=== PATIENT | female | born 1955 | race Caucasian/White ===

== ENCOUNTER 2016-07-20 14:12 | Emergency (ER) | payer MEDICAID, OTHER ==
[~2016-07-20] VITALS: Ht 154.9 cm; Wt 69.0 kg
[~2016-07-20 14:12] MED LIST: LISI-604; SIMV40TA5
[2016-07-20] MEDS ORDERED: DIPHENHYDRAMINE 50MG/ML VIAL IV ONE (15:00)
[2016-07-20] MEDS ORDERED: SODIUM CHLORIDE 0.9% 1,000 ML IV ONE (15:00)
[2016-07-20] MEDS ORDERED: METOCLOPRAMIDE HCL 10MG/2ML VIAL IV ONE (15:00)
[2016-07-20] MEDS ORDERED: MORPHINE SULFATE 2 MG/ML CPJ (NOT FOR IM USE) IV ONE (15:00)
[2016-07-20 15:54] LABS: BASOPHILS % 0.9 % (0.0-2.0); HEMATOCRIT. 38.9 % (36.0-48.0); LYMPHOCYTES % 30.1 % (20.0-50.0); MEAN CORPUSCULAR HEMOGLOBIN 29.6 pg (28.0-32.0); MEAN CORPUSCULAR HGB CONC 33.4 g/dL (31.0-37.0); MEAN CORPUSCULAR VOLUME 88.5 fL (81.0-99.0); MONOCYTES % 8.3 % (2.0-8.0); NEUTROPHILS % 59.7 % (40.0-76.0); PLATELET 214 x1000/uL (130-400); RED CELL DISTRIBUTION WIDTH 13.8 % (11.6-14.6); WHITE BLOOD COUNT 6.8 x1000/uL (4.5-11.0)
[2016-07-20 16:00] LABS: CHLORIDE 106 mEq/L (98-107); INDEX HEMOLYSI 1 (1-3); INDEX ICTERIC 1 (1-4); INDEX LIPEMIC 1 (1-3)
[2016-07-20 16:04] LABS: ALBUMIN 3.9 g/dL (3.4-5.0); ANION GAP 15; CALCIUM 8.8 mg/dL (8.5-10.1); CARBON DIOXIDE 25 mEq/L (21-32); UREA NITROGEN BLOOD 13 mg/dL (7-21)
[2016-07-20 16:06] LABS: ALANINE AMINOTRANSFERASE 25 IU/L (13-61); eGFR > 60 mL/min (>60)
[2016-07-20] MEDS ORDERED: KETOROLAC 30MG/ML VIAL IV NR (17:15)
[2016-07-20] MEDS ORDERED: MORPHINE SULFATE 2 MG/ML CPJ (NOT FOR IM USE) IV NR (17:15)
[2016-07-20 18:27] VITALS: BP 125/71
== END 2016-07-20 18:29 | disposition home or self-care (01) ==
LOC: ER 14:13
DX: G43.909 Migraine, unspecified, not intractable, without status migrainosus (principal); H53.149 Visual discomfort, unspecified; E78.00 Pure hypercholesterolemia, unspecified; I10 Essential (primary) hypertension; R20.2 Paresthesia of skin
CPT/HCPCS: 36415; 70450; 80053; 85025; 96361; 96374; 96375; 96376; 99285; J1200; J1885; J2270; J2765; J7030; Z7610

== ENCOUNTER 2017-06-29 12:53 | Inpatient (IN) | payer SELFPAY ==
[~2017-06-29] VITALS: Ht 154.9 cm; Wt 69.5 kg
[~2017-06-29 12:53] MED LIST changes: -LISI-604; +LISI-604 PO; -SIMV40TA5; +SIMV40TA5 PO
[2017-06-29] MEDS ORDERED: ASPIRIN 81MG TABLET PO STA (14:33)
[2017-06-29] MEDS ORDERED: NITROGLYCERIN 0.4MG TABLET SL SL PRN ×2 (14:45→16:15)
[2017-06-29] MEDS ORDERED: CLONIDINE 0.1MG TABLET PO ONE (14:45)
[2017-06-29 15:12] LABS: EOSINOPHILS % 0.7 % (0.0-5.0); HEMATOCRIT. 40.4 % (36.0-48.0); HEMOGLOBIN. 13.8 g/dL (12.0-16.0); LYMPHOCYTES % 22.1 % (20.0-50.0); MEAN CORPUSCULAR VOLUME 88.1 fL (81.0-99.0); MEAN PLATELET VOLUME 9.1 fl (7.4-10.4); MONOCYTES % 6.5 % (2.0-8.0); NEUTROPHILS % 69.7 % (40.0-76.0); PLATELET 225 x1000/uL (130-400); RED BLOOD CELL COUNT 4.58 mill/uL (4.2-5.4); RED CELL DISTRIBUTION WIDTH 13.7 % (11.6-14.6)
[2017-06-29 15:17] LABS: CHLORIDE 106 mEq/L (98-107)
[2017-06-29 15:21] LABS: D-DIMER 0.82 mg/L FEU (<0.50); INR 1.1; PARTIAL THROMBOPLASTIN TIME 26.4 sec (23.4-31.0); PROTHROMBIN TIME 11.5 sec (9.4-11.6)
[2017-06-29 15:27] LABS: TROPONIN I < 0.02 ng/mL (0.00-0.04)
[2017-06-29] MEDS ORDERED: GUAIFENESIN 200MG/10ML SUGAR FREE UDC PO PRN (16:15)
[2017-06-29] MEDS ORDERED: DIPHENHYDRAMINE 50MG/ML VIAL IV PRN (16:15)
[2017-06-29] MEDS ORDERED: ACETAMINOPHEN 325MG TABLET PO PRN (16:15)
[2017-06-29] MEDS ORDERED: ONDANSETRON HCL 4MG/2ML VIAL IV PRN (16:15)
[2017-06-29] MEDS ORDERED: IPRATROPIUM/ALBUTEROL 0.5-3(2.5)MG/3ML NEB INH PRN (16:15)
[2017-06-29] MEDS ORDERED: LORAZEPAM 0.5MG TABLET PO PRN (16:15)
[2017-06-29] MEDS ORDERED: MAGNESIUM/ALUMINUM HYDROXIDE/SIMETHICONE 30ML UDC PO PRN (16:15)
[2017-06-29] MEDS ORDERED: CLONIDINE 0.1MG TABLET PO PRN (16:15)
[2017-06-29] MEDS ORDERED: DOCUSATE SODIUM 100MG CAPSULE PO PRN (16:15)
[2017-06-29] MEDS ORDERED: KETOROLAC 15MG/ML VIAL IV PRN (16:30)
[2017-06-29] MEDS ORDERED: IOHEXOL-350 100 ML BOTTLE ONE (17:42)
[2017-06-29] MEDS ORDERED: NA PHOS,M-B/NA PHOS,DI-BA ENEMA 118ML PR PRN (20:00)
[2017-06-29] MEDS ORDERED: ZOLPIDEM TARTRATE 5MG TABLET PO PRN (20:00)
[2017-06-29 21:05] VITALS: BP 138/74
[2017-06-29] MEDS: LISINOPRIL 20MG TABLET PO SCH (21:24)
[2017-06-29] MEDS: METOPROLOL TARTRATE 25MG TABLET PO SCH (21:24)
[2017-06-29] MEDS: FAMOTIDINE 20MG/2ML VIAL IV SCH (21:25)
[2017-06-29] MEDS ORDERED: PNEUMOCOCCAL 23-VAL P-SAC VAC 0.5 ML IM ONE (23:45)
[2017-06-29] MEDS ORDERED: INFLUENZA VIRUS VACCINE 0.5ML SYR IM ONE (23:45)
[2017-06-29 23:50] LABS: CREATINE KINASE 230 IU/L (26-192); CREATINE KINASE MB FRACTION 1.4 ng/mL (0.5-3.6); TROPONIN I < 0.02 ng/mL (0.00-0.04)
[2017-06-30] VITALS: BP 119/59
[2017-06-30 01:37] LABS: *AMPHETAMINES SCREEN URINE NEGATIVE (NEGATIVE); *BARBITURATES SCREEN URINE NEGATIVE (NEGATIVE); *BENZODIAZEPINES SCREEN URINE NEGATIVE (NEGATIVE); *COCAINE SCREEN URINE NEGATIVE (NEGATIVE); CANNABINOID URINE SCREEN NEGATIVE (NEGATIVE); METHADONE URINE SCREEN NEGATIVE (NEGATIVE); OPIATES URINE SCREEN NEGATIVE (NEGATIVE); PHENCYCLIDINE URINE SCREEN NEGATIVE (NEGATIVE)
[2017-06-30 04:00] VITALS: BP 113/52
[2017-06-30 07:21] LABS: CREATINE KINASE 235 IU/L (26-192); CREATINE KINASE MB FRACTION 1.4 ng/mL (0.5-3.6); TROPONIN I < 0.02 ng/mL (0.00-0.04)
[2017-06-30] MEDS: FAMOTIDINE 20MG/2ML VIAL IV SCH (08:34)
[2017-06-30] MEDS: LISINOPRIL 20MG TABLET PO SCH (08:35)
[2017-06-30] MEDS: METOPROLOL TARTRATE 25MG TABLET PO SCH (08:35)
[2017-06-30] MEDS ORDERED: ASPIRIN 325MG EC TABLET PO SCH (09:00)
[2017-06-30] MEDS ORDERED: AMLODIPINE 10MG TABLET PO SCH (09:00)
[2017-06-30] MEDS ORDERED: ENOXAPARIN 40MG/0.4ML SYR SUBCUT SCH (09:00)
[2017-06-30 10:21] VITALS: BP 118/70
== END 2017-06-30 12:40 | disposition home or self-care (01) | DRG 203 ==
LOC: ER 14:28 → 8WST 14:35 → EDBEDREQ 16:03 → ENRESERV 19:21
PROVIDERS: ADMIT Internal Medicine; ATTEND Internal Medicine
DX: R07.89 Other chest pain (principal); I10 Essential (primary) hypertension; E78.00 Pure hypercholesterolemia, unspecified; M19.90 Unspecified osteoarthritis, unspecified site; Z79.899 Other long term (current) drug therapy
CPT/HCPCS: 36415; 71045; 71275; 80053; 80061; 80305; 82550; 82553; 83036; 83880; 84484; 85025; 85379; 85610; 85730; 90686; 90732; 93005; 93970; 99285; J1650; J3490; Q9967

== ENCOUNTER 2018-06-27 21:20 | Inpatient (IN) | payer SELFPAY ==
[~2018-06-27] VITALS: Ht 157.5 cm; Wt 65.8 kg
[2018-06-27] MEDS ORDERED: ASPIRIN 81MG TABLET PO ONE (22:30)
[2018-06-27 22:53] LABS: EOSINOPHILS % 2.7 % (0.0-5.0); HEMATOCRIT. 43.3 % (36.0-48.0); HEMOGLOBIN. 14.3 g/dL (12.0-16.0); MEAN CORPUSCULAR HEMOGLOBIN 29.7 pg (28.0-32.0); MEAN CORPUSCULAR VOLUME 89.9 fL (81.0-99.0); MONOCYTES % 10.4 % (2.0-8.0); NEUTROPHILS % 63.9 % (40.0-76.0); PLATELET 206 x1000/uL (130-400); RED BLOOD CELL COUNT 4.82 mill/uL (4.2-5.4); RED CELL DISTRIBUTION WIDTH 13.7 % (11.6-14.6)
[2018-06-27 22:56] LABS: CHLORIDE 106 mEq/L (98-107)
[2018-06-27 22:58] LABS: INR 1.1; PROTHROMBIN TIME 10.9 sec (9.1-11.1)
[2018-06-27] MEDS ORDERED: NITROGLYCERIN 0.4MG TABLET SL SL ONE (23:45)
[2018-06-28] MEDS ORDERED: NITROGLYCERIN 0.4MG TABLET SL SL ONE (00:15)
[2018-06-28] MEDS ORDERED: SODIUM CHLORIDE 0.9% 1,000 ML IV ONE (00:30)
[2018-06-28] MEDS ORDERED: IOHEXOL-350 100 ML BOTTLE ONE (03:55)
[2018-06-28 12:00] VITALS: BP 165/106
[2018-06-28 13:03] VITALS: BP 165/106
[2018-06-28] MEDS ORDERED: NITROGLYCERIN 0.4MG TABLET SL SL PRN (13:45)
[2018-06-28] MEDS ORDERED: HYDROCODONE/ACETAMINOPHEN 5/325MG TABLET PO PRN (13:45)
[2018-06-28 16:00] VITALS: BP 147/84
[2018-06-28] MEDS ORDERED: INFLUENZA VIRUS VACCINE(AFLURIA) 0.5ML SYR IM ONE (18:30)
[2018-06-28] MEDS ORDERED: PNEUMOCOCCAL 23-VAL P-SAC VAC 0.5 ML IM ONE (18:30)
[2018-06-28 20:00] VITALS: BP 135/81
[2018-06-28] MEDS: LISINOPRIL 20MG TABLET PO SCH (20:43)
[2018-06-28] MEDS ORDERED: ATORVASTATIN CALCIUM 40MG TABLET PO SCH (21:00)
[2018-06-29] VITALS: BP 113/56
[2018-06-29 04:00] VITALS: BP 95/40
[2018-06-29 07:13] LABS: BASOPHILS % 0.7 % (0.0-2.0); EOSINOPHILS % 2.6 % (0.0-5.0); HEMATOCRIT. 38.7 % (36.0-48.0); HEMOGLOBIN. 12.8 g/dL (12.0-16.0); LYMPHOCYTES % 31.2 % (20.0-50.0); MEAN CORPUSCULAR HEMOGLOBIN 29.9 pg (28.0-32.0); MEAN CORPUSCULAR VOLUME 90.5 fL (81.0-99.0); MEAN PLATELET VOLUME 10.1 fl (7.4-10.4); MONOCYTES % 9.9 % (2.0-8.0); NEUTROPHILS % 55.6 % (40.0-76.0); PLATELET 181 x1000/uL (130-400); RED BLOOD CELL COUNT 4.27 mill/uL (4.2-5.4); RED CELL DISTRIBUTION WIDTH 13.9 % (11.6-14.6)
[2018-06-29 08:00] VITALS: BP 106/63
[2018-06-29 08:00] LABS: CHLORIDE 109 mEq/L (98-107)
[2018-06-29 08:07] LABS: LDL CHOLESTEROL 111 mg/dL (5-100)
[2018-06-29 08:08] LABS: HDL CHOLESTEROL 53 mg/dL (40-59)
[2018-06-29] MEDS ORDERED: REGADENOSON 0.4 MG/5 ML IV NR (08:45)
[2018-06-29] MEDS: LISINOPRIL 20MG TABLET PO SCH (09:00)
[2018-06-29] MEDS ORDERED: REGADENOSON 0.4 MG/5 ML IV ONE (10:59)
[2018-06-29 12:00] VITALS: BP 107/61
[2018-06-29 16:32] VITALS: BP 107/61
[2018-06-29] MEDS ORDERED: ATORVASTATIN CALCIUM 10MG TABLET PO SCH (21:00)
== END 2018-06-29 16:40 | disposition home or self-care (01) | DRG 203 ==
LOC: ER 21:20 → 7WST 06-28 01:15 → EDBEDREQ 06-28 01:17 → ENRESERV 06-28 11:51
PROVIDERS: ADMIT Family Medicine; ATTEND Family Medicine
DX: R07.89 Other chest pain (principal); K76.0 Fatty (change of) liver, not elsewhere classified; E11.9 Type 2 diabetes mellitus without complications; I10 Essential (primary) hypertension; E78.00 Pure hypercholesterolemia, unspecified; E78.5 Hyperlipidemia, unspecified; R79.1 Abnormal coagulation profile; Z82.49 Family history of ischemic heart disease and other diseases of the circulatory system; Z91.19 Patient's noncompliance with other medical treatment and regimen
CPT/HCPCS: 36415; 71045; 71275; 78452; 80048; 80061; 83735; 83880; 84484; 85379; 90686; 93005; 93017; 93306; 99291; A9500; J2785; J7030; Q9967

== ENCOUNTER 2021-03-20 13:38 | Inpatient (IN) | payer MEDICAID ==
[~2021-03-20] VITALS: Ht 154.9 cm; Wt 73.7 kg
[~2021-03-20 13:38] MED LIST changes: -LISI-604 PO; +LISI20TA31 PO; +SIMV-46 PO; -SIMV40TA5 PO
[2021-03-20] MEDS ORDERED: MORPHINE SULFATE 4 MG/ML CPJ (NOT FOR IM USE) IV STA (13:57)
[2021-03-20] MEDS ORDERED: ONDANSETRON HCL 4MG/2ML INJ IV STA (13:57)
[2021-03-20] MEDS ORDERED: NITROGLYCERIN 0.4MG TABLET SL SL PRN (14:00)
[2021-03-20 14:41] LABS: BASOPHILS % 0.5 % (0.0-2.0); EOSINOPHILS % 1.3 % (0.0-5.0); HEMATOCRIT. 38.9 % (36.0-48.0); HEMOGLOBIN. 12.8 g/dL (12.0-16.0); LYMPHOCYTES % 22.4 % (20.0-50.0); MEAN CORPUSCULAR HEMOGLOBIN 29.3 pg (28.0-32.0); MEAN CORPUSCULAR VOLUME 89.4 fL (81.0-99.0); MEAN PLATELET VOLUME 9.4 fl (7.4-10.4); MONOCYTES % 5.3 % (2.0-8.0); NEUTROPHILS % 70.5 % (40.0-76.0); PLATELET 216 x1000/uL (130-400); RED BLOOD CELL COUNT 4.35 mill/uL (4.2-5.4); RED CELL DISTRIBUTION WIDTH 14.7 % (11.6-14.6)
[2021-03-20 14:45] LABS: CHLORIDE 108 mEq/L (98-107)
[2021-03-20 15:16] LABS: PROTHROMBIN TIME 11.1 sec (9.6-11.0)
[2021-03-20] MEDS ORDERED: IOHEXOL-350 100 ML BOTTLE ONE (17:12)
[2021-03-20 20:30] VITALS: BP 144/74
[2021-03-20] MEDS ORDERED: MAGNESIUM/ALUMINUM HYDROXIDE/SIMETHICONE 30ML UDC PO PRN (20:45)
[2021-03-20] MEDS ORDERED: HYDROCODONE/ACETAMINOPHEN 5/325MG TABLET PO PRN (20:45)
[2021-03-20] MEDS ORDERED: HYDRALAZINE 20MG/ML VIAL IV PRN (20:45)
[2021-03-20] MEDS ORDERED: GUAIFENESIN 200MG/10ML SUGAR FREE UDC PO PRN (20:45)
[2021-03-20] MEDS ORDERED: ACETAMINOPHEN 325MG TABLET PO PRN (20:45)
[2021-03-20] MEDS ORDERED: LORAZEPAM 2MG/ML CPJ IV PRN (20:45)
[2021-03-20] MEDS ORDERED: DOCUSATE SODIUM 100MG CAPSULE PO PRN (20:45)
[2021-03-20] MEDS ORDERED: IPRATROPIUM/ALBUTEROL 0.5-3(2.5)MG/3ML NEB HHN PRN (20:45)
[2021-03-20] MEDS ORDERED: DIPHENHYDRAMINE 50MG/ML VIAL IV PRN (20:45)
[2021-03-20] MEDS ORDERED: ONDANSETRON HCL 4MG/2ML INJ IV PRN (20:45)
[2021-03-20] MEDS ORDERED: CLONIDINE 0.1MG TABLET PO PRN (20:45)
[2021-03-20] MEDS: ENOXAPARIN 40MG/0.4ML SYR SUBCUT SCH (22:06)
[2021-03-20] MEDS: SODIUM CHLORIDE 0.9% INJ 3ML FLUSH IVF SCH (22:06)
[2021-03-20 23:20] LABS: *AMPHETAMINES SCREEN URINE NEGATIVE (NEGATIVE); *BARBITURATES SCREEN URINE NEGATIVE (NEGATIVE); *BENZODIAZEPINES SCREEN URINE NEGATIVE (NEGATIVE); *COCAINE SCREEN URINE NEGATIVE (NEGATIVE); METHADONE URINE SCREEN NEGATIVE (NEGATIVE); OPIATES URINE SCREEN PRESUMTIVE POSITIVE (NEGATIVE)
[2021-03-20 23:21] LABS: CANNABINOID URINE SCREEN NEGATIVE (NEGATIVE)
[2021-03-20 23:24] LABS: PHENCYCLIDINE URINE SCREEN NEGATIVE (NEGATIVE)
[2021-03-20] MEDS: MORPHINE SULFATE 2 MG/ML CPJ (NOT FOR IM USE) IV PRN (23:54)
[2021-03-21] VITALS: BP 127/71
[2021-03-21 01:19] LABS: CREATINE KINASE 122 IU/L (26-192)
[2021-03-21 04:00] VITALS: BP 135/75
[2021-03-21] MEDS: MORPHINE SULFATE 2 MG/ML CPJ (NOT FOR IM USE) IV PRN (06:27)
[2021-03-21] MEDS: SODIUM CHLORIDE 0.9% INJ 3ML FLUSH IVF SCH ×3 (06:28→20:29)
[2021-03-21 07:00] LABS: BASOPHILS % 0.8 % (0.0-2.0); EOSINOPHILS % 2.4 % (0.0-5.0); HEMATOCRIT. 37.1 % (36.0-48.0); HEMOGLOBIN. 12.4 g/dL (12.0-16.0); LYMPHOCYTES % 28.2 % (20.0-50.0); MEAN CORPUSCULAR HEMOGLOBIN 29.9 pg (28.0-32.0); MEAN CORPUSCULAR VOLUME 89.4 fL (81.0-99.0); MEAN PLATELET VOLUME 9.6 fl (7.4-10.4); NEUTROPHILS % 58.6 % (40.0-76.0); PLATELET 204 x1000/uL (130-400); RED BLOOD CELL COUNT 4.15 mill/uL (4.2-5.4); RED CELL DISTRIBUTION WIDTH 14.5 % (11.6-14.6)
[2021-03-21 07:11] LABS: CHLORIDE 108 mEq/L (98-107)
[2021-03-21 07:22] LABS: CREATINE KINASE 123 IU/L (26-192)
[2021-03-21 07:27] LABS: CREATINE KINASE MB FRACTION 1.1 ng/mL (0.5-3.6)
[2021-03-21 08:00] VITALS: BP 127/76
[2021-03-21] MEDS ORDERED: INFLUENZA VACCINE 05/PF 0.5 ML SYRINGE IM ONE (09:00)
[2021-03-21] MEDS ORDERED: REGADENOSON 0.4 MG/5 ML IV SCH (09:45)
[2021-03-21] MEDS: ASPIRIN 81MG EC TABLET PO SCH (11:52)
[2021-03-21 12:00] VITALS: BP 131/76
[2021-03-21 16:00] VITALS: BP 148/81
[2021-03-21 20:00] VITALS: BP 130/67
[2021-03-21] MEDS: ENOXAPARIN 40MG/0.4ML SYR SUBCUT SCH (20:29)
[2021-03-21] MEDS ORDERED: ATOR40TA70 PO (20:35)
[2021-03-21] MEDS ORDERED: ATORVASTATIN CALCIUM 10MG TABLET PO SCH (21:00)
[2021-03-22] VITALS: BP 117/73
[2021-03-22 04:00] VITALS: BP 147/86
[2021-03-22] MEDS: SODIUM CHLORIDE 0.9% INJ 3ML FLUSH IVF SCH ×2 (05:17→18:02)
[2021-03-22 07:23] LABS: BASOPHILS % 0.7 % (0.0-2.0); EOSINOPHILS % 2.6 % (0.0-5.0); HEMATOCRIT. 36.5 % (36.0-48.0); LYMPHOCYTES % 25.7 % (20.0-50.0); MEAN CORPUSCULAR HEMOGLOBIN 29.3 pg (28.0-32.0); MEAN CORPUSCULAR VOLUME 89.2 fL (81.0-99.0); MEAN PLATELET VOLUME 9.4 fl (7.4-10.4); MONOCYTES % 9.5 % (2.0-8.0); NEUTROPHILS % 61.5 % (40.0-76.0); PLATELET 190 x1000/uL (130-400); RED BLOOD CELL COUNT 4.09 mill/uL (4.2-5.4); RED CELL DISTRIBUTION WIDTH 14.3 % (11.6-14.6)
[2021-03-22 08:00] VITALS: BP 120/86
[2021-03-22 08:08] LABS: CHLORIDE 107 mEq/L (98-107)
[2021-03-22 08:15] LABS: LDL CHOLESTEROL 71 mg/dL (5-100)
[2021-03-22 08:16] LABS: HDL CHOLESTEROL 53 mg/dL (40-59)
[2021-03-22] MEDS: ASPIRIN 81MG EC TABLET PO SCH (08:24)
[2021-03-22] MEDS ORDERED: CAFFEINE CITRATE 20MG/ML 3ML VIAL IV ONE (09:59)
[2021-03-22] MEDS ORDERED: REGADENOSON 0.4 MG/5 ML IV ONE (09:59)
[2021-03-22 12:00] VITALS: BP 132/71
[2021-03-22] MEDS ORDERED: NALOXONE HCL 0.4MG/ML VIAL IV PRN (14:15)
[2021-03-22 16:00] VITALS: BP 129/72
[2021-03-22 18:24] VITALS: BP 128/77
== END 2021-03-22 20:15 | disposition home or self-care (01) | DRG 347 ==
LOC: ER 13:38 → 7EST 17:04 → EDBEDREQ 17:06 → EDBEDREQTM 17:06 → ENRESERV 19:21
PROVIDERS: ADMIT Internal Medicine; ATTEND Internal Medicine
DX: M48.02 Spinal stenosis, cervical region (principal); M50.20 Other cervical disc displacement, unspecified cervical region; Q25.47 Right aortic arch; R07.9 Chest pain, unspecified; E66.9 Obesity, unspecified; E78.00 Pure hypercholesterolemia, unspecified; E78.5 Hyperlipidemia, unspecified; I10 Essential (primary) hypertension; K21.9 Gastro-esophageal reflux disease without esophagitis; M47.9 Spondylosis, unspecified; G89.29 Other chronic pain; Z20.822 Contact with and (suspected) exposure to COVID-19; M17.0 Bilateral primary osteoarthritis of knee; Z79.899 Other long term (current) drug therapy; Z68.30 Body mass index [BMI] 30.0-30.9, adult
CPT/HCPCS: 36415; 71045; 71275; 72141; 78452; 80048; 80053; 80061; 80305; 82550; 82553; 83880; 84443; 84484; 85025; 85379; 87426; 90686; 93005; 93017; 93306; 93970; 99285; A9500; J0706; J1650; J2060; J2270; J2405; J2785; Q9967